=== PATIENT | female | born 1995 | race African-American/Black ===

== ENCOUNTER 2017-06-21 16:11 | Emergency (ER) | payer OTHER ==
[~2017-06-21] VITALS: Ht 152.4 cm; Wt 88.2 kg
[~2017-06-21 16:11] MED LIST: ALBUTEROL S2.5 MG/.5 IN; AMOXICILLIN500 M1 OR; AMOXICILLIN500 MG OR; AMOXICILLIN500 MG PO; BACTRIM DS1 TAB OR; EPIPEN0.3 MG IM; KEFLEX500 MG OR; MUCINEX D1 TAB PO; NAPROSYN500 MG PO; NO HOME MEDS; ROBITUSSIN AC10 ML OR; TYLENOL CH160 MG/5 M OR; ULTRAM50 M1 PO; ZITHROMAX250 MG PO
[2017-06-21] MEDS ORDERED: FLONASE AL50 MCG/AC1 NAB (18:11)
[2017-06-21] MEDS ORDERED: ZPAK PO (18:11)
[2017-06-21 18:19] VITALS: BP 117/80
== END 2017-06-21 18:19 | disposition home or self-care (01) | DRG 153 ==
LOC: ED 16:11
DX: J06.9 Acute upper respiratory infection, unspecified (principal); J45.909 Unspecified asthma, uncomplicated

== ENCOUNTER 2018-01-12 11:23 | Emergency (ER) | payer OTHER ==
[~2018-01-12] VITALS: Ht 152.4 cm; Wt 87.7 kg
[~2018-01-12 11:23] MED LIST changes: +FLONASE AL50 MCG/AC1 NAB; +ZPAK PO
[2018-01-12 13:40] VITALS: BP 128/72
== END 2018-01-12 13:50 | disposition home or self-care (01) | DRG 103 ==
LOC: ED 11:23
DX: G43.909 Migraine, unspecified, not intractable, without status migrainosus (principal); M54.2 Cervicalgia; M54.9 Dorsalgia, unspecified

== ENCOUNTER 2018-03-04 23:42 | Emergency (ER) | payer OTHER ==
[~2018-03-04] VITALS: Ht 152.4 cm; Wt 90.2 kg
[2018-03-05 00:34] LABS: HEMATOCRIT 36.1 % (37.0-47.0); HEMOGLOBIN 10.2 g/dl (12.0-16.0); IMMATURE GRANULOCYTES 0.3 % (0.0-1.0); MEAN CORPUSCULAR HGB 20.9 pG CALC (26.0-32.0); MEAN CORPUSCULAR HGB CONC 28.3 g/L CALC (32.0-36.0); NEUT# 5.47 thou/uL (2.00-7.15); RED BLOOD COUNT 4.88 mill/uL (4.20-5.60); RED CELL DISTRI WIDTH 18.5 % (11.5-15.5)
[2018-03-05 00:35] LABS: URINE BILIRUBIN - DIPSTICK NEGATIVE (NEGATIVE); URINE BLOOD DIPSTICK NEGATIVE (NEGATIVE); URINE COLOR YELLOW; URINE GLUCOSE - DIPSTICK NEGATIVE (NEGATIVE); URINE KETONE NEGATIVE (NEGATIVE); URINE LEUK ESTERASE TRACE (NEGATIVE); URINE NITRITE - DIPSTICK NEGATIVE (Negative); URINE PH 5.5 (4.5-8.0); URINE PROTEIN - DIPSTICK NEGATIVE (NEG-TRACE); URINE SPECIFIC GRAVITY >=1.030; URINE UROBILINOGEN - DIPSTICK 0.2 E.U./dL (0.2)
[2018-03-05 00:36] LABS: URINE CLARITY HAZY
[2018-03-05 01:15] LABS: ALBUMIN 4.5 g/dL (3.2-5.0); ALKALINE PHOSPHATASE 66 u/l (38-126); AMYLASE 87 u/l (30-110); ANION GAP 20 (6-22 (CALC)); BILIRUBIN, TOTAL 0.3 mg/dL (0.0-1.4); BUN 18 mg/dL (7-17); BUN/CREATININE RATIO 18 (12-20 (CALC)); CARBON DIOXIDE 23 mmol/l (22-30); CHLORIDE 103 mmol/l (95-108); GFR > 60 ML/MIN (>=60 (CALC)); GFR FOR AFR.AMER. > 60 ML/MIN (>=60 (CALC)); LIPASE 195 u/l (23-300); POTASSIUM 4.3 mmol/l (3.5-5.1); SGOT/AST 28 u/l (14-36); SGPT/ALT 34 u/l (9-52); SODIUM 142 mmol/l (137-146); TOTAL PROTEIN 8.8 g/dL (6.3-8.2)
[2018-03-05] MEDS ORDERED: EQ MAGNESIUM CI1 SOL PO (01:31)
[2018-03-05] MEDS ORDERED: FIORICET PO (01:31)
[2018-03-05 01:41] VITALS: BP 123/82
== END 2018-03-05 01:45 | disposition home or self-care (01) | DRG 392 ==
LOC: ED 23:42
PROVIDERS: Family Medicine
DX: R10.11 Right upper quadrant pain (principal); R10.31 Right lower quadrant pain; R10.33 Periumbilical pain; K59.00 Constipation, unspecified; R51 Headache; J45.909 Unspecified asthma, uncomplicated

== ENCOUNTER 2019-09-18 20:29 | Emergency (ER) | payer OTHER ==
[~2019-09-18] VITALS: Ht 152.4 cm; Wt 93.0 kg
[~2019-09-18 20:29] MED LIST changes: +EQ MAGNESIUM CI1 SOL PO; +FIORICET PO
[2019-09-18 21:52] VITALS: BP 129/95
== END 2019-09-18 21:52 | disposition home or self-care (01) | DRG 103 ==
LOC: ED 20:29
DX: G43.909 Migraine, unspecified, not intractable, without status migrainosus (principal)

== ENCOUNTER 2021-01-12 09:15 | Emergency (ER) | payer OTHER ==
[~2021-01-12] VITALS: Ht 152.4 cm; Wt 91.0 kg
[2021-01-12 10:21] LABS: URINE BILIRUBIN - DIPSTICK NEGATIVE (NEGATIVE); URINE BLOOD DIPSTICK NEGATIVE (NEGATIVE); URINE COLOR YELLOW; URINE GLUCOSE - DIPSTICK NEGATIVE (NEGATIVE); URINE KETONE NEGATIVE (NEGATIVE); URINE PROTEIN - DIPSTICK NEGATIVE (NEG-TRACE); URINE SPECIFIC GRAVITY 1.025; URINE UROBILINOGEN - DIPSTICK 0.2 E.U./dL (0.2)
[2021-01-12 10:28] LABS: URINE BACTERIA RARE hpf; URINE EPITHELIAL CELLS FEW EPI/hpf (0-FEW); URINE LEUK ESTERASE SMALL (NEGATIVE); URINE NITRITE - DIPSTICK NEGATIVE (Negative); URINE WBC 0-2 WBC/hpf (0-5)
[2021-01-12 10:42] LABS: HEMATOCRIT 36.4 % (37.0-47.0); HEMOGLOBIN 10.1 g/dl (12.0-16.0); IMMATURE GRANULOCYTES 0.2 % (0.0-5.0); MEAN CELL VOLUME 77.4 fL CALC (80.0-100.0); MEAN CORPUSCULAR HGB 21.5 pG CALC (26.0-32.0); MEAN CORPUSCULAR HGB CONC 27.7 g/dL CAL (32.0-36.0); NEUT# 2.81 thou/uL (2.00-7.15); RED BLOOD COUNT 4.7 mill/uL (4.20-5.60); RED CELL DISTRI WIDTH 19.6 % (11.5-15.5)
[2021-01-12 10:54] LABS: ALBUMIN 4.1 g/dL (3.2-5.0); ALKALINE PHOSPHATASE 53 u/l (38-126); ANION GAP 12 (6-22 (CALC)); BUN 11 mg/dL (7-17); BUN/CREATININE RATIO 13 (12-20 (CALC)); CARBON DIOXIDE 23 mmol/l (22-30); CHLORIDE 104 mmol/l (95-108); CREATININE 0.9 mg/dL (0.5-1.0); GFR > 60 ML/MIN (>=60 (CALC)); GFR FOR AFR.AMER. > 60 ML/MIN (>=60 (CALC)); LIPASE 92 u/l (23-300); POTASSIUM 4.3 mmol/l (3.5-5.1); SGOT/AST 34 u/l (14-36); SODIUM 135 mmol/l (137-146); TOTAL PROTEIN 8.3 g/dL (6.3-8.2)
[2021-01-12 10:55] LABS: BILIRUBIN, TOTAL 0.6 mg/dL (0.0-1.4)
[2021-01-12 12:05] VITALS: BP 138/84
== END 2021-01-12 12:05 | disposition home or self-care (01) | DRG 552 ==
LOC: ED 09:15
PROVIDERS: Family Medicine
DX: M54.2 Cervicalgia (principal); M54.6 Pain in thoracic spine; M54.5 Low back pain; J45.909 Unspecified asthma, uncomplicated; V49.40XA Driver injured in collision with unspecified motor vehicles in traffic accident, initial encounter
CPT/HCPCS: L0120

== ENCOUNTER 2023-02-13 10:04 | Emergency (ER) | payer BC ==
[2023-02-13] VITALS (9 sets, daily range): BP systolic 118–135; BP diastolic 67–93
[~2023-02-13] VITALS: Ht 157.5 cm; Wt 81.5 kg
[2023-02-13] MEDS ORDERED: XANAX0.5 MG PO (10:52)
[2023-02-13] MEDS ORDERED: PROTONIX40 M2 PO (10:59)
[2023-02-13] MEDS ORDERED: MACRODANTIN100 MG PO (11:01)
[2023-02-13] MEDS ORDERED: FLUOXETINE40 MG PO (11:01)
[2023-02-13] MEDS ORDERED: LANTUS100 UNIT SC (11:02)
[2023-02-13] MEDS ORDERED: ELIQUIS5 MG PO (11:03)
== END 2023-02-13 12:04 | disposition home or self-care (01) | DRG 639 ==
LOC: ED 10:04
DX: E11.649 Type 2 diabetes mellitus with hypoglycemia without coma (principal); F17.200 Nicotine dependence, unspecified, uncomplicated; Z79.4 Long term (current) use of insulin; Z20.822 Contact with and (suspected) exposure to COVID-19

== ENCOUNTER 2023-05-22 09:53 | Emergency (ER) | payer BC ==
[~2023-05-22] VITALS: Ht 157.5 cm; Wt 87.0 kg
[~2023-05-22 09:53] MED LIST changes: +ELIQUIS5 MG PO; +FLUOXETINE40 MG PO; +LANTUS100 UNIT SC; +MACRODANTIN100 MG PO; +PROTONIX40 M2 PO; +XANAX0.5 MG PO
[2023-05-22 09:58] VITALS: BP 119/82
[2023-05-22] MEDS ORDERED: NAPROXEN500 MG PO (10:52)
[2023-05-22 11:09] VITALS: BP 118/87
[2023-05-22 11:10] VITALS: BP 118/87
== END 2023-05-22 11:14 | disposition home or self-care (01) | DRG 556 ==
LOC: ED 09:53
DX: M25.531 Pain in right wrist (principal); E11.9 Type 2 diabetes mellitus without complications; E66.9 Obesity, unspecified; J45.909 Unspecified asthma, uncomplicated; Z79.4 Long term (current) use of insulin; Z86.711 Personal history of pulmonary embolism; Z79.01 Long term (current) use of anticoagulants

== ENCOUNTER 2023-05-29 11:35 | Emergency (ER) | payer BC ==
[2023-05-29] VITALS (8 sets, daily range): BP systolic 103–120; BP diastolic 79–90
[~2023-05-29] VITALS: Ht 152.4 cm; Wt 87.0 kg
[~2023-05-29 11:35] MED LIST changes: +NAPROXEN500 MG PO
[2023-05-29] MEDS ORDERED: TAM75CAP PO (13:28)
== END 2023-05-29 13:58 | disposition home or self-care (01) | DRG 195 ==
LOC: ED 11:35
DX: J10.1 Influenza due to other identified influenza virus with other respiratory manifestations (principal); E11.9 Type 2 diabetes mellitus without complications; J45.909 Unspecified asthma, uncomplicated; Z79.4 Long term (current) use of insulin; Z20.822 Contact with and (suspected) exposure to COVID-19

== ENCOUNTER 2023-08-28 09:22 | Emergency (ER) | payer OTHER ==
[~2023-08-28] VITALS: Ht 152.4 cm; Wt 90.0 kg
[~2023-08-28 09:22] MED LIST changes: +TAM75CAP PO
[2023-08-28 09:44] VITALS: BP 135/101
[2023-08-28] MEDS ORDERED: OZEMPIC2 MG (09:55)
[2023-08-28 10:00] VITALS: BP 140/107
[2023-08-28 10:04] LABS: URINE BILIRUBIN - DIPSTICK Negative (NEGATIVE); URINE BLOOD DIPSTICK Small (NEGATIVE); URINE GLUCOSE - DIPSTICK Negative (NEGATIVE); URINE KETONE Negative (NEGATIVE); URINE NITRITE - DIPSTICK Negative (Negative); URINE PROTEIN - DIPSTICK 100 mg/dL (NEG-TRACE); URINE SPECIFIC GRAVITY 1.025; URINE UROBILINOGEN - DIPSTICK 0.2 E.U./dL (0.2)
[2023-08-28 10:07] LABS: URINE COLOR Yellow; URINE LEUK ESTERASE Small (NEGATIVE)
[2023-08-28 10:16] VITALS: BP 118/75
[2023-08-28 10:17] LABS: URINE SQUAMOUS EPITHELIAL CELL FEW EPI/hpf (0-FEW)
[2023-08-28 10:21] LABS: BASO% 0.5 % (0-3); EOS% 11.4 % (0-8); HEMATOCRIT 40.3 % (37.0-47.0); HEMOGLOBIN 11.9 g/dl (12.0-16.0); LYMPH% 39.1 % (15-41); MEAN CELL VOLUME 80.3 fL CALC (80.0-100.0); MEAN CORPUSCULAR HGB 23.7 pG CALC (26.0-32.0); MEAN CORPUSCULAR HGB CONC 29.5 g/dL CAL (32.0-36.0); MONO% 10.1 % (2-13); NEUT# 2.34 thou/uL (2.00-7.15); NEUT% 38.9 % (42-76); RED BLOOD COUNT 5.02 mill/uL (4.20-5.60); RED CELL DISTRI WIDTH 15.8 % (11.5-15.5)
[2023-08-28 10:31] VITALS: BP 128/79
[2023-08-28 10:47] LABS: ALBUMIN 4.2 g/dL (3.2-5.0); ALKALINE PHOSPHATASE 53 u/l (38-126); ANION GAP 18 (6-22 (CALC)); BILIRUBIN, TOTAL 0.4 mg/dL (0.02-1.3); BUN 10 mg/dL (7-17); BUN/CREATININE RATIO 11 (12-20 (CALC)); CARBON DIOXIDE 20 mmol/l (22-30); CHLORIDE 103 mmol/l (95-108); GFR FOR AFR.AMER. > 60 ML/MIN (>=60 (CALC)); GFR OTHER RACES > 60 ML/MIN (>=60 (CALC)); LIPASE 308 u/l (23-300); SGOT/AST 51 u/l (14-36); SODIUM 138 mmol/l (137-146); TOTAL PROTEIN 8.2 g/dL (6.3-8.2)
[2023-08-28] MEDS ORDERED: DOXY-CAPS100 MG PO (11:59)
[2023-08-28] MEDS ORDERED: METRONIDAZOLE500 MG PO (11:59)
[2023-08-28] MEDS ORDERED: ZOFRAN4 MG/TAB PO (11:59)
[2023-08-28 12:16] VITALS: BP 128/79
== END 2023-08-28 12:35 | disposition home or self-care (01) | DRG 759 ==
LOC: ED 09:22
PROVIDERS: Family Medicine
DX: N73.9 Female pelvic inflammatory disease, unspecified (principal); E11.9 Type 2 diabetes mellitus without complications; Z86.711 Personal history of pulmonary embolism; Z79.4 Long term (current) use of insulin